=== PATIENT | female | born 1995 | race Hispanic/Latino ===

== ENCOUNTER 2021-10-23 12:51 | Outpatient (CLI) | payer MEDICAID ==
[2021-10-23 15:52] LABS: Hematocrit 38.7 % (30.3-42.9); Hemoglobin 12.7 gm/dl (10.1-14.3); Mean Corpuscular HGB Conc 33 % (30-34); Mean Corpuscular Volume 86 fl (79-97); Platelet Count 254 K/mm3 (140-440); Red Cell Distribution Width 13.9 % (13.2-15.2)
[2021-10-23 15:58] LABS: Alanine Aminotransferase 7 units/L (7-56); Uric Acid 4.4 mg/dL (3.5-7.6)
[2021-10-23 16:47] LABS: Bacteria,Urine 1+ /HPF (Negative); Mucus,Urine FEW /HPF; RBC,Urine < 1.0 /HPF (0.0-6.0)
[2021-10-23 16:49] LABS: Color,Urine Straw (Yellow)
[2021-10-23 16:50] LABS: Protein/Creatinine Ratio,Urine 0.11
[2021-10-23 17:02] VITALS: BP 118/56
== END 2021-10-23 17:35 | disposition home or self-care (01) ==
LOC: TRG 12:51 → APU 12:53 → TRG 17:35
PROVIDERS: ATTEND Obstetrics & Gynecology
DX: Z34.92 Encounter for supervision of normal pregnancy, unspecified, second trimester (principal); Z3A.26 26 weeks gestation of pregnancy
CPT/HCPCS: 36415; 81001; 82565; 82570; 83615; 84156; 84450; 84460; 84550; 85027